=== PATIENT | male | born 1940 | race Caucasian/White ===

== ENCOUNTER → 2016-04-24 | Outpatient (REF) ==
[~2016-04-24] MED LIST: AMARYL4 MG PO; ARICEPT 5MG PO; ASPIRIN E.C. 8181 MG PO; ATIVAN 0.50.5 MG/TAB PO; CARB/LEVO; CARDI-OMEGA1000 MG PO; COLACE 100100 MG/CAP PO; GLUCOPHAGE500 MG/TAB PO; JANUVIA50 MG PO; MYLANTA GAS MA125 MG PO; NAMENDA XR 28MG PO; NEURONTIN300 MG/CAP PO; NORCO 325 MG-51 TAB PO; PRIL40 PO; PYRIDIUM200 M1 PO; VESICARE10 MG PO; ZOLOFT 100MG100 MG PO
== END ==
LOC: ZLAB.WCH 09:05
DX: Z01.89 Encounter for other specified special examinations (principal)

== ENCOUNTER → 2016-10-16 | Outpatient (CLI) | payer MEDICARE, OTHER | LOC: COL.RAD 13:53 | DX: G20 Parkinson's disease (principal); R13.12 Dysphagia, oropharyngeal phase | CPT/HCPCS: G8996-GN; G8997-GN; G8998-GN ==

== ENCOUNTER → 2016-11-08 | Outpatient (REF) | LOC: ZLAB.WCH 20:58 | DX: Z01.89 Encounter for other specified special examinations (principal) ==

== ENCOUNTER → 2016-11-11 | Outpatient (REF) | LOC: ZLAB.WCH 18:07 | DX: Z01.89 Encounter for other specified special examinations (principal) | CPT/HCPCS: G0103 ==

== ENCOUNTER → 2017-03-06 | Outpatient (REF) | LOC: ZLAB.WCH 18:28 | DX: Z01.89 Encounter for other specified special examinations (principal) ==

== ENCOUNTER → 2017-08-14 | Outpatient (REF) | LOC: ZLAB.WCH 14:18 | DX: Z01.89 Encounter for other specified special examinations (principal) ==

== ENCOUNTER → 2018-06-09 | Outpatient (REF) | LOC: ZLAB.WCH 17:40 | DX: Z01.89 Encounter for other specified special examinations (principal) ==

== ENCOUNTER 2019-04-24 15:27 | Inpatient (IN) | payer MEDICARE, OTHER ==
[2019-04-24] VITALS (303 sets, daily range): BP systolic 137–148; BP diastolic 57–73; PULSE 103–105; TEMP 100.4–101; O2SAT 89–100
[~2019-04-24] VITALS: Ht 170.2 cm; Wt 74.7 kg
[2019-04-24] MEDS ORDERED: IBU400 MG PO (16:58)
[2019-04-24] MEDS ORDERED: TYLENOL 325MG325 MG PO (16:58)
[2019-04-24] MEDS ORDERED: ROBITUSSIN DM 105 ML PO (16:59)
[2019-04-24] MEDS ORDERED: SINEMET CR1 UDTAB.S1 PO (17:02)
[2019-04-24] MEDS ORDERED: ARICEPT10 MG PO (17:05)
[2019-04-24 17:14] LABS: ARTERIAL BLD GAS O2 SATURATION 94.8 % (92-100); ARTERIAL BLOOD GAS BASE EXCESS -1.8 (-2-2); ARTERIAL BLOOD GAS HCO3 21.9 meq/L (22-26); ARTERIAL BLOOD GAS PCO2 34.3 mmHg (35-45); ARTERIAL BLOOD GAS PO2 71.6 mmHg (80-100); ARTERIAL BLOOD GAS pH 7.42 (7.35-7.45)
[2019-04-24 17:24] LABS: BASO % 0.3 % (0.0-2.0); EOS % 0.1 % (0-4.0); GRAN # 8.3 (1.4-6.5); GRAN % 90.8 % (42.2-75.2); HEMATOCRIT 38.3 % (42.0-52.0); HEMOGLOBIN 12.3 g/dl (13.5-18.0); LYMPH # 0.4 (1.2-3.4); LYMPH % 4.3 % (20.0-51.0); MEAN CELL VOLUME 90 fl (80.0-100.0); MEAN CORPUSCULAR HEMOGLOBIN 29 pg (27.0-31.0); MEAN CORPUSCULAR HGB CONC 32 g/dl (33.0-37.0); MEAN PLATELET VOLUME 9.8 fl (7.4-10.4); MONO # 0.3 (0.1-0.6); MONO % 3.1 % (1.7-9.3); PLATELET COUNT 182 K/mm3 (130-400); RED BLOOD COUNT 4.28 M/mm3 (4.20-5.60); REDCELL DISTRIBUTION WIDTH-CV 14.1 % (11.5-14.5)
--- NOTE | 2019-04-24 17:30 | NUR ---
ORAL CATHETER USED TO HELP INDUCE A COUGH WITH ENOUGH PRODUCTION TO SEND A SAMPLE TO LAB. PT AT THIS TIME ALSO SWITCHED FROM 5L OXYMASK TO A 5L HFNC. PT IS TOLERATING IT WELL. PT IS TACHYPNEIC BUT IS STILL FEBRILE AT THIS TIME. RN AT BEDSIDE AT THIS TIME GIVING ORAL TYLENOL.
[2019-04-24 17:42] LABS: INR 1.2 (0.8-3.0); PROTHROMBIN TIME 13.8 SECONDS (9.7-12.8)
[2019-04-24 17:50] LABS: MAGNESIUM 1.6 mg/dL (1.6-2.3)
[2019-04-24 18:25] LABS: ALBUMIN 4.4 gm/dL (3.5-5.0); BILIRUBIN,TOTAL 0.4 mg/dL (0.0-1.0); CALCIUM 9.1 mg/dL (8.4-10.2); CREATININE, serum 1.12 (0.66-1.25); POTASSIUM 4.5 mmol/L (3.4-5.0); TOTAL PROTEIN 7.2 gm/dL (6.4-8.2)
[2019-04-24 21:07] LABS: BAND 4 % (0-10); LYMPHOCYTE 6 % (20.0-51.0); NEUTROPHILS 86 % (42.0-75.2)
[2019-04-24] MEDS ORDERED: NORVASC 5MG5 MG/TAB PO (21:54)
[2019-04-24] MEDS ORDERED: SINEMET 25/101 UDTAB PO (21:58)
[2019-04-24] MEDS ORDERED: NEURONTIN100 MG/CAP PO (22:00)
[2019-04-24] MEDS ORDERED: GLUCOTROL 5M5 MG/TAB PO (22:01)
[2019-04-24] MEDS ORDERED: NAMENDA 10MG TA10 MG PO (22:02)
[2019-04-24] MEDS ORDERED: GLUCOPHAGE1000 MG PO (22:03)
[2019-04-24] MEDS ORDERED: ALEVE 220MG220 MG PO (22:05)
[2019-04-24] MEDS ORDERED: PRILOSEC 20MG20 MG PO (22:07)
[2019-04-24] MEDS ORDERED: REMERON30 MG PO (22:11)
[2019-04-24] MEDS ORDERED: DESYREL 50MG50 MG PO (22:12)
[2019-04-25] VITALS (752 sets, daily range): BP systolic 123–156; BP diastolic 60–92; PULSE 67–91; TEMP 98.1–99; O2SAT 64–100
[2019-04-25 04:04] LABS: ARTERIAL BLD GAS O2 SATURATION 93.3 % (92-100); ARTERIAL BLD GAS TCO2 CT 22.2; ARTERIAL BLOOD GAS BASE EXCESS -2.5 (-2-2); ARTERIAL BLOOD GAS HCO3 21.2 meq/L (22-26); ARTERIAL BLOOD GAS PCO2 33.1 mmHg (35-45); ARTERIAL BLOOD GAS PO2 66.9 mmHg (80-100); ARTERIAL BLOOD GAS pH 7.43 (7.35-7.45)
[2019-04-25 05:16] LABS: MEAN CELL VOLUME 89 fl (80.0-100.0); MEAN CORPUSCULAR HGB CONC 33 g/dl (33.0-37.0); MEAN PLATELET VOLUME 9.7 fl (7.4-10.4); PLATELET COUNT 148 K/mm3 (130-400); RED BLOOD COUNT 3.52 M/mm3 (4.20-5.60); REDCELL DISTRIBUTION WIDTH-CV 14.1 % (11.5-14.5)
[2019-04-25 05:26] LABS: HEMATOCRIT 31.4 % (42.0-52.0); HEMOGLOBIN 10.2 g/dl (13.5-18.0); MEAN CORPUSCULAR HEMOGLOBIN 29 pg (27.0-31.0)
[2019-04-25 05:27] LABS: INR 1.5 (0.8-3.0)
[2019-04-25 05:29] LABS: ALBUMIN 3.2 gm/dL (3.5-5.0); BILIRUBIN,TOTAL 0.4 mg/dL (0.0-1.0); CALCIUM 8.2 mg/dL (8.4-10.2); CREATININE, serum 0.91 (0.66-1.25); POTASSIUM 4.2 mmol/L (3.4-5.0); TOTAL PROTEIN 5.8 gm/dL (6.4-8.2)
[2019-04-25 05:55] LABS: BAND 20 % (0-10); LYMPHOCYTE 2 % (20.0-51.0); NEUTROPHILS 76 % (42.0-75.2); PLATELET ESTIMATE NORMAL (NORMAL)
--- NOTE | 2019-04-25 07:05 | NUR ---
Bedside report recieved from NEVA Leyva. Patient awake and participates. Denies needs or pain at this time. Peripheral IV sites x2 uncomplicated. Shaw with positive UO. Bed in low and locked position, call light within reach, rails up x3. Care assumed at this time.
--- NOTE | 2019-04-25 09:50 | NUR ---
Patient with increased delirium. Several attempts made to reorient and patient is resistant to these. He accurately reports his location as [place], [place] and the hospital but does not believe RN that he is sick and needs to remain here. He states he needs to leave and has things to do. Patient is found to have removed RFA INT IV. Site is dressed. Morales STAT lock is broken and patient is pulling at morales catheter. NC O2 has been removed by patient and O2 tubing pulled from flowmeter on wall. All these things are replaced and corrected. See MAR for intervention for agitation.
--- NOTE | 2019-04-25 10:20 | NUR ---
Patient resides at [facility] (since January 2019) and plans to return to [facility] upon recovery. Patient's (Danae Streeter) lives in [place], [place] and the patient receives support from her and his family as needed. Patient uses a wheelchair for mobility assistance, his primary care physician is Dr. Balta Sanders, and his pharmacy is [facility]. Patient does have advance directives for healthcare completed (DPOA 1 is his Danae Streeter [phone] or [phone] and DPOA 2 is Enrrique ySl [phone]). Patient is having increased confusion as of this morning and reports he knows he is in [facility] but is unsure of why and is not convinced he is ill. No further needs at this time and social secretary will follow up as needed.
[2019-04-26] VITALS (856 sets, daily range): BP systolic 147–166; BP diastolic 66–87; PULSE 62–87; TEMP 98–99.4; O2SAT 69–100
[2019-04-26 05:23] LABS: BASO % 0.2 % (0.0-2.0); GRAN # 4.8 (1.4-6.5); GRAN % 83.6 % (42.2-75.2); HEMATOCRIT 30.5 % (42.0-52.0); LYMPH # 0.5 (1.2-3.4); LYMPH % 9.1 % (20.0-51.0); MEAN CELL VOLUME 88 fl (80.0-100.0); MEAN CORPUSCULAR HEMOGLOBIN 29 pg (27.0-31.0); MEAN CORPUSCULAR HGB CONC 33 g/dl (33.0-37.0); MEAN PLATELET VOLUME 10.2 fl (7.4-10.4); MONO # 0.3 (0.1-0.6); MONO % 4.7 % (1.7-9.3); PLATELET COUNT 143 K/mm3 (130-400); RED BLOOD COUNT 3.48 M/mm3 (4.20-5.60); REDCELL DISTRIBUTION WIDTH-CV 13.9 % (11.5-14.5)
[2019-04-26 05:33] LABS: INR 1.2 (0.8-3.0); PROTHROMBIN TIME 14.1 SECONDS (9.7-12.8)
[2019-04-26 05:35] LABS: ALBUMIN 3.1 gm/dL (3.5-5.0); BILIRUBIN,TOTAL 0.4 mg/dL (0.0-1.0); CALCIUM 8.4 mg/dL (8.4-10.2); CREATININE, serum 0.82 (0.66-1.25); TOTAL PROTEIN 5.8 gm/dL (6.4-8.2)
--- NOTE | 2019-04-26 07:25 | NUR ---
Dr Freedman in to see pt at this time.
--- NOTE | 2019-04-26 07:27 | NUR ---
Report received from Jelly HOOKS and care resumed.
--- NOTE | 2019-04-26 16:40 | NUR ---
Chemical Process Project Engineer contacted patient's , Danae (ph#[phone]) to review discharge plan. Danae reports patient lives at [facility] and was at the [facility] right before being admitted to [facility]. Danae states she would like for patient to return to [facility] if he cannot return home. TIA presented Patient Preference form over the phone and Danae provided verbal consent to select [facility]. SW contacted [facility] and faxed a referral. SW to continue to follow.
--- NOTE | 2019-04-26 19:24 | NUR ---
Report given to Bonilla HOOKS and care transfered.
--- NOTE | 2019-04-26 19:40 | NUR ---
Assessment completed and charted at this time, please see documentation for details. Patient resting in bed, bed alarm on due to patient high risk status. No family present, will continue to monitor patient.
[2019-04-27] VITALS (717 sets, daily range): BP systolic 148–159; BP diastolic 61–85; PULSE 59–100; TEMP 97.5–100.2; O2SAT 78–100
[2019-04-27 06:40] LABS: HEMOGLOBIN 10.5 g/dl (13.5-18.0); MEAN CELL VOLUME 89 fl (80.0-100.0); MEAN CORPUSCULAR HEMOGLOBIN 29 pg (27.0-31.0); MEAN CORPUSCULAR HGB CONC 32 g/dl (33.0-37.0); MEAN PLATELET VOLUME 9.8 fl (7.4-10.4); PLATELET COUNT 165 K/mm3 (130-400); RED BLOOD COUNT 3.67 M/mm3 (4.20-5.60); REDCELL DISTRIBUTION WIDTH-CV 13.8 % (11.5-14.5)
[2019-04-27 06:42] LABS: HEMATOCRIT 32.8 % (42.0-52.0); INR 1.2 (0.8-3.0); PROTHROMBIN TIME 14.3 SECONDS (9.7-12.8)
[2019-04-27 06:45] LABS: ALBUMIN 3.2 gm/dL (3.5-5.0); BILIRUBIN,TOTAL 0.6 mg/dL (0.0-1.0); CALCIUM 8.8 mg/dL (8.4-10.2); CREATININE, serum 0.92 (0.66-1.25); TOTAL PROTEIN 5.9 gm/dL (6.4-8.2)
[2019-04-27 07:27] LABS: BAND 9 % (0-10); LYMPHOCYTE 18 % (20.0-51.0); NEUTROPHILS 67 % (42.0-75.2)
--- NOTE | 2019-04-27 13:54 | NUR ---
HEMODIALYSIS LAB TECHNICIAN student faxed updates to [facility]. dean of student services will continue.
--- NOTE | 2019-04-27 17:59 | NUR ---
Up to chair this afternoon. Napping. Denies pain. Waiting for supper tray.
--- NOTE | 2019-04-27 20:04 | NUR ---
Pt returned to bed with assist x2. Incontinent of urine. Pericare provided. Gown changed. Bedside shift report completed.
[2019-04-28] VITALS (370 sets, daily range): BP systolic 147–163; BP diastolic 64–79; PULSE 59–91; TEMP 98.4–98.7; O2SAT 62–100
--- NOTE | 2019-04-28 07:20 | NUR ---
Report received from Autumn HOOKS and care resumed.
--- NOTE | 2019-04-28 09:27 | NUR ---
Dr Ruiz in to see pt at this time.
[2019-04-28] MEDS ORDERED: LEVAQUIN 750MG750 M1 PO (09:35)
[2019-04-28] MEDS ORDERED: TAMIFLU6 MG/ML PO (09:36)
--- NOTE | 2019-04-28 10:35 | NUR ---
The patient is to discharge today, 04/28 back to [facility]. HAND GRINDER student contacted the patient's son, Enrrique to present IM form. Enrrique verbalized understanding. A copy was provided to the patient and original was placed in the chart. [facility] will transport the patient in-between [id number]. The team and the patient's family were in agreeance. Discharge orders faxed. There are no additional needs at this time.
--- NOTE | 2019-04-28 12:00 | NUR ---
penitentiary staff here to transport pt back to group home. Pt moved to wheelchair with max assist of 2. Update given to group home staff. Belongings sent with pt.
== END 2019-04-28 11:55 | DRG 871 ==
LOC: ICU 15:27
PROVIDERS: ADMIT Internal Medicine
DX: A41.89 Other specified sepsis (principal); J96.01 Acute respiratory failure with hypoxia; E87.2 Acidosis; R65.20 Severe sepsis without septic shock; G20 Parkinson's disease; F02.80 Dementia in other diseases classified elsewhere, unspecified severity, without behavioral disturbance, psychotic disturbance, mood disturbance, and anxiety; Z87.01 Personal history of pneumonia (recurrent); E11.9 Type 2 diabetes mellitus without complications; I10 Essential (primary) hypertension; Z86.14 Personal history of Methicillin resistant Staphylococcus aureus infection; Z66 Do not resuscitate; J10.1 Influenza due to other identified influenza virus with other respiratory manifestations
CPT/HCPCS: 99231-AI; 99233-AI; A4216; A4314; J0692; J1630; J1650; J1720; J1815; J1956; J3370; J7030; J7050; J7120

== ENCOUNTER 2019-04-29 20:12 | Inpatient (IN) | payer MEDICARE ==
[~2019-04-29] VITALS: Ht 177.8 cm; Wt 73.3 kg
[~2019-04-29 20:12] MED LIST changes: +ALEVE 220MG220 MG PO; +ARICEPT10 MG PO; +DESYREL 50MG50 MG PO; +GLUCOPHAGE1000 MG PO; +GLUCOTROL 5M5 MG/TAB PO; +IBU400 MG PO; +LEVAQUIN 750MG750 M1 PO; +NAMENDA 10MG TA10 MG PO; +NEURONTIN100 MG/CAP PO; +NORVASC 5MG5 MG/TAB PO; +PRILOSEC 20MG20 MG PO; +REMERON30 MG PO; +ROBITUSSIN DM 105 ML PO; +SINEMET 25/101 UDTAB PO; +SINEMET CR1 UDTAB.S1 PO; +TAMIFLU6 MG/ML PO; +TYLENOL 325MG325 MG PO
[2019-04-29 20:36] LABS: HEMOGLOBIN 11.6 g/dl (13.5-18.0); MEAN CELL VOLUME 88 fl (80.0-100.0); MEAN CORPUSCULAR HEMOGLOBIN 28 pg (27.0-31.0); MEAN CORPUSCULAR HGB CONC 32 g/dl (33.0-37.0); MEAN PLATELET VOLUME 9.6 fl (7.4-10.4); PLATELET COUNT 213 K/mm3 (130-400); RED BLOOD COUNT 4.08 M/mm3 (4.20-5.60); REDCELL DISTRIBUTION WIDTH-CV 13.6 % (11.5-14.5)
[2019-04-29 20:48] LABS: ALANINE AMINOTRANSFERASE 6 U/L (21-72); ALBUMIN 3.8 gm/dL (3.5-5.0); ALKALINE PHOSPHATASE 61 U/L (50-136); ANION GAP 11 mmol/L (7-16); AST,SGOT 21 U/L (15-37); BILIRUBIN,TOTAL 0.9 mg/dL (0.0-1.0); BLOOD UREA NITROGEN 22 mg/dL (9-20); CALCIUM 9.2 mg/dL (8.4-10.2); CARBON DIOXIDE 26 mmol/L (22-30); CHLORIDE 103 mmol/L (98-107); CREATININE, serum 0.97 (0.66-1.25); GLUCOSE 204 mg/dL (74-106); POTASSIUM 3.5 mmol/L (3.4-5.0); SODIUM 140 mmol/L (137-145); TOTAL PROTEIN 6.8 gm/dL (6.4-8.2)
[2019-04-29 21:00] LABS: BAND 4 % (0-10); LYMPHOCYTE 4 % (20.0-51.0); MYELOCYTE 4 % (0-0); NEUTROPHILS 84 % (42.0-75.2); PLATELET ESTIMATE NORMAL (NORMAL)
[2019-04-29 21:05] LABS: TROPONIN-I < 0.012 ng/mL (0.000-0.035)
[2019-04-29 23:22] LABS: COLLECTION METHOD CATHETER
[2019-04-29 23:27] LABS: MUCOUS Present /lpf; PH 5 (5-8); SQUAMOUS EPITHELIAL 0-2 /hpf; URINE APPEARANCE Clear; URINE BACTERIA None Seen /hpf; URINE BILIRUBIN Negative (NEGATIVE); URINE BLOOD Negative (NEGATIVE); URINE COLOR Yellow; URINE GLUCOSE 1+ (NEGATIVE); URINE KETONE 1+ (NEGATIVE); URINE LEUKOCYTE ESTERASE Negative (NEGATIVE); URINE NITRATE Negative (NEGATIVE); URINE PROTEIN(semi-quant) 1+ (NEGATIVE); URINE RBC 0-2 /hpf; URINE UROBILINOGEN Negative (NEGATIVE)
[2019-04-30] VITALS (7 sets, daily range): BP systolic 134–151; BP diastolic 49–59; PULSE 70–94; TEMP 97.9–98.9
--- NOTE | 2019-04-30 00:15 | NUR ---
Patient arrived on floor at 2355 from ED accompanied by and son. Five page completed with assistance of family as patient has history of Parkinson's and doesn't speak much. Patient has diminished lung sounds with expiratory wheezes bilaterally. Patient is on telemetry. Antibiotics given as ordered. No temperature at this time, however family states patient has had fever. Family requested the patient be given a drink. This nurse called Robina Egan APRN for diet order, instructed to give patient thinned liquid and call if patient isn't able to tolerate. Patient's assisted giving patient a drink of water. Patient started coughing almost immediately. This nurse reported information back to SENIOR ACCOUNT MANAGER, patient is now NPO. Patient seems to be resting comfortably at this time.
[2019-04-30 00:58] LABS: INR 1.2 (0.8-3.0); PROTHROMBIN TIME 14.2 SECONDS (9.7-12.8)
[2019-04-30 01:45] LABS: ARTERIAL BLOOD GAS BASE EXCESS 2.9 (-2-2); ARTERIAL BLOOD GAS PCO2 34.7 mmHg (35-45); ARTERIAL BLOOD GAS PO2 77.3 mmHg (80-100); ARTERIAL BLOOD GAS pH 7.49 (7.35-7.45)
--- NOTE | 2019-04-30 06:42 | NUR ---
Patient became a little more confused around 530. Patient was removing nasal cannula and removing tele leads. Patient SpO2 spot checked on room air at 90-91%. Patient doing better with nasal cannula off. No complaints of pain at this time.
--- NOTE | 2019-04-30 10:00 | NUR ---
Assessment completed, patient is very lethargic this moring, vital signs stable/ afebrile, denies pain, Lungs CTA/ diminihsed, heart RRR, daughter spoke to on the phone and she is going to be up here later to speak with hospitalist, his bed alarm is set, he is NPO for ST eval
--- NOTE | 2019-04-30 16:18 | NUR ---
TIA met with the patient, the patient's , Danae and the patient's daughter, Gia to complete initial intake. The patient's responded to intake questions. The patient lives at [facility]. The patient receives assistance with ADLs. The patient's PCP is Dr. Woodson and patient receives medication from [facility] in [place]. The patient has advanced directives in the EMR. protective services social worker will continue to follow to ensure a safe discharge. TIA faxed updates to [facility]. Danae and Gia notified TIA of some concerns. TIA to inform ethanol quality leader, Yarelis Tejada. protective services social worker will continue to follow. Danae Streeter Gia [place]
--- NOTE | 2019-04-30 16:45 | NUR ---
TIA faxed updates to [facility]. The patient's family reports that if the patient is needing skilled at discharge they may be interested in another facility for skilled then returning to [facility] to continue in LTC there. Will continue to monitor.
--- NOTE | 2019-04-30 22:15 | NUR ---
Shift assessment complete. Patient in bed, awake. Oriented to name only. Incontinent of urine. Radha-care provided, bed pad changed. Coccyx noted to be reddened. Previous bed sore, healing. Able to deny pain. Repositioned to right side with pillow support. Will continue to monitor.
--- NOTE | 2019-05-01 04:38 | NUR ---
Patient in bed, sleeping. Appears comfortable. Will continue to monitor.
[2019-05-01 05:18] VITALS: BP 165/69; PULSE 61; TEMP 98
[2019-05-01 07:45] LABS: HEMOGLOBIN 10.5 g/dl (13.5-18.0); MEAN CELL VOLUME 89 fl (80.0-100.0); MEAN CORPUSCULAR HEMOGLOBIN 29 pg (27.0-31.0); MEAN CORPUSCULAR HGB CONC 32 g/dl (33.0-37.0); MEAN PLATELET VOLUME 10.1 fl (7.4-10.4); PLATELET COUNT 184 K/mm3 (130-400); RED BLOOD COUNT 3.64 M/mm3 (4.20-5.60); REDCELL DISTRIBUTION WIDTH-CV 13.6 % (11.5-14.5)
[2019-05-01 07:47] LABS: ALBUMIN 3.2 gm/dL (3.5-5.0); BILIRUBIN,TOTAL 0.7 mg/dL (0.0-1.0); CALCIUM 8.5 mg/dL (8.4-10.2); CREATININE, serum 0.83 (0.66-1.25); POTASSIUM 3.2 mmol/L (3.4-5.0); TOTAL PROTEIN 6.1 gm/dL (6.4-8.2)
[2019-05-01 07:50] VITALS: BP 169/90; PULSE 84; TEMP 98.6
--- NOTE | 2019-05-01 07:52 | NUR ---
AM ASSESSMENT COMPLETED AT THIS TIME. LAYING IN BED. AWAKE ALERT BUT CONFUSED. MILD AGITATION. PULING TELEMETRY OFF. PULLED OUT IV SITE TO LEFT LOWER FOREARM. DENIES C/O PAIN. LARGE EPISODE OF LOOSE STOOL X 1. PULLED OFF EXTERNAL CATHETER. CONTINUES TO BE NPO EXCEPT CRUSHED MEDICATIONS WITH SMALL BITES OR APPLESAUCE OR PUDDING. HAD EPISODE OF COUGHING WHILE TAKING MEDICATIONS. HOSPITALIST NOTIFIED OF COUGHING. AND DAUGHTER PRESENT DURING HOSPITALIST ROUNDS. CT HEAD OBTAINED TO R/O ACUTE FINDINGS FOR INCREASED CONFUSION AND AGITATION. POTASSIUM REPLACED ORDERED FOR LOW SERUM POTASSIUM LEVEL.
[2019-05-01 07:54] LABS: HEMATOCRIT 32.5 % (42.0-52.0)
[2019-05-01 09:25] LABS: BAND 3 % (0-10); EOSINOPHIL 4 % (0-4); LYMPHOCYTE 17 % (20.0-51.0); METAMYELOCYTE 6 % (0-0); NEUTROPHILS 63 % (42.0-75.2)
[2019-05-01 09:26] LABS: PLATELET ESTIMATE NORMAL (NORMAL)
--- NOTE | 2019-05-01 10:27 | NUR ---
Patient was resting.
[2019-05-01 13:12] VITALS: BP 155/65; PULSE 75; TEMP 98.6
[2019-05-01 17:11] VITALS: BP 151/56; PULSE 73; TEMP 98.9
--- NOTE | 2019-05-01 20:15 | NUR ---
Spoke with pt's . She was concerned that pt is aspirating when taking medication with applesauce/pudding. Discussed with that it does appear he is aspirating d/t "wet" breath sounds, and coughing after meds are given. stated she knows the risks, and would like us to still administer his Parkinson medication, sinemet. MACIEJ Way aware.
[2019-05-01 21:16] VITALS: BP 179/58; PULSE 76; TEMP 97.6
--- NOTE | 2019-05-01 22:00 | NUR ---
Shift assessment complete. Patient in bed, awake. Able to say "no" when asked if he is in pain. Oriented to person only. Only sinemet given per 's request. Crushed, given in pudding. Tolerated well, but as I left the room, he had a spell of coughing. RT on board to suction if needed. Does not appear to need to be suctioned at this time. Will continue to monitor.
[2019-05-02 00:01] VITALS: BP 131/64; PULSE 80; TEMP 97.7
--- NOTE | 2019-05-02 01:30 | NUR ---
Patient in bed, awake. Incontinent of lg BM/lg urine. Radha-care provided. Brief loosely attached d/t reddened buttocks/scrotum. Barrier cream applied. Partial linen change. Repositioned to left side with pillow support. Mouthcare done, pt tolerated well. IV in LUE flushed, blood return noted. Infusing abx. Bed alarm on. Call light within reach.
[2019-05-02 04:49] VITALS: BP 171/62; PULSE 73; TEMP 98.4
--- NOTE | 2019-05-02 05:07 | NUR ---
Patient in bed, sleeping. Arouses to name. Denies pain. IV in LUE flushed, blood return noted. Repositioned supine, with pillow support. Denies further needs at this time. Will continue to monitor.
[2019-05-02 08:42] LABS: HEMOGLOBIN 10.6 g/dl (13.5-18.0); MEAN CELL VOLUME 89 fl (80.0-100.0); MEAN CORPUSCULAR HEMOGLOBIN 29 pg (27.0-31.0); MEAN CORPUSCULAR HGB CONC 32 g/dl (33.0-37.0); MEAN PLATELET VOLUME 10.5 fl (7.4-10.4); PLATELET COUNT 197 K/mm3 (130-400); RED BLOOD COUNT 3.72 M/mm3 (4.20-5.60); REDCELL DISTRIBUTION WIDTH-CV 13.4 % (11.5-14.5)
[2019-05-02 08:43] VITALS: BP 161/59; PULSE 75; TEMP 97.4
[2019-05-02 08:49] LABS: ALBUMIN 3.3 gm/dL (3.5-5.0); BILIRUBIN,TOTAL 0.5 mg/dL (0.0-1.0); CALCIUM 8.5 mg/dL (8.4-10.2); CREATININE, serum 0.71 (0.66-1.25); POTASSIUM 3.2 mmol/L (3.4-5.0); TOTAL PROTEIN 6.1 gm/dL (6.4-8.2)
[2019-05-02 08:53] LABS: HEMATOCRIT 33.1 % (42.0-52.0)
--- NOTE | 2019-05-02 09:24 | NUR ---
RADIOLOGY ABLE TO DO LUMABR PUNCTURE ORDERED BY DR VENTURA. ATTEMPTED TO CALL TO OBTAIN CONSENT UNABLE TO REACH. PROCEDURE ON HOLD UNTIL ABLE TO GET CONSENT.
--- NOTE | 2019-05-02 09:43 | NUR ---
Vancomycin Initial Dosing Pharmacy Note Ordering provider: Luciano Schumacher MD Indication/duration: Poss. asp. PNA, septic Relevant comorbidities: DM, recent Infl.A+, AMS LABS: eCrCl ~ 80 mL/min, WBC 8.2 Recommendation: Loading dose: 1g given 05/01/19 @ 15:00 and again 05/02/19 @ 01:30. Maintenance dose: 1 gram every 12 hours Trough goal: 15-20 ug/mL with first trough level prior to the 5th dose on 05/03/19 @ 13:00. Will continue to follow.
[2019-05-02 09:49] LABS: EOSINOPHIL 4 % (0-4); LYMPHOCYTE 9 % (20.0-51.0); METAMYELOCYTE 7 % (0-0); NEUTROPHILS 74 % (42.0-75.2); PLATELET ESTIMATE NORMAL (NORMAL)
[2019-05-02 12:41] VITALS: BP 145/82; PULSE 72; TEMP 98.2
[2019-05-02 15:49] VITALS: BP 156/54; PULSE 68; TEMP 98.8
--- NOTE | 2019-05-02 20:30 | NUR ---
Initial shift assessment done- does open eyes and says a few words- not oriented, denies being in pain- appears to be comfortable, No SOB ,, Incontinent of urine- cleaned up- repositioned.
[2019-05-02 21:41] VITALS: BP 158/56; PULSE 84; TEMP 98.2
[2019-05-03 00:51] VITALS: BP 155/60; PULSE 66; TEMP 97.7
[2019-05-03 05:20] VITALS: BP 152/65; PULSE 73; TEMP 99.3
--- NOTE | 2019-05-03 06:15 | NUR ---
Quiet night- VSS, slept very well during the night. Repositioned every couple hours- continues with loose sounding cough
[2019-05-03 06:32] LABS: HEMOGLOBIN 10.6 g/dl (13.5-18.0); MEAN CELL VOLUME 90 fl (80.0-100.0); MEAN CORPUSCULAR HEMOGLOBIN 28 pg (27.0-31.0); MEAN CORPUSCULAR HGB CONC 32 g/dl (33.0-37.0); MEAN PLATELET VOLUME 9.8 fl (7.4-10.4); PLATELET COUNT 201 K/mm3 (130-400); RED BLOOD COUNT 3.76 M/mm3 (4.20-5.60); REDCELL DISTRIBUTION WIDTH-CV 13.2 % (11.5-14.5)
[2019-05-03 06:39] LABS: HEMATOCRIT 33.7 % (42.0-52.0)
[2019-05-03 06:49] LABS: ALBUMIN 3.3 gm/dL (3.5-5.0); BILIRUBIN,TOTAL 0.5 mg/dL (0.0-1.0); CALCIUM 8.5 mg/dL (8.4-10.2); CREATININE, serum 0.74 (0.66-1.25); POTASSIUM 3.4 mmol/L (3.4-5.0); TOTAL PROTEIN 6.2 gm/dL (6.4-8.2)
[2019-05-03 07:54] LABS: BAND 2 % (0-10); EOSINOPHIL 2 % (0-4); LYMPHOCYTE 10 % (20.0-51.0); METAMYELOCYTE 12 % (0-0); NEUTROPHILS 71 % (42.0-75.2)
[2019-05-03 07:55] LABS: PLATELET ESTIMATE NORMAL (NORMAL)
[2019-05-03 08:42] VITALS: BP 170/53; PULSE 78; TEMP 99.4
--- NOTE | 2019-05-03 10:23 | NUR ---
Pt napping upon entry, easily awakened, no C/O pain at this time, medications given with applesauce, no choking / coughing noted. Shift assessments complete, left Pt call light in reach, bed in lowest position.
--- NOTE | 2019-05-03 13:19 | NUR ---
Pt seen by treatment team with Dr Rangel and following that, I was asked to see pt regarding palliative care. Family has elected to return to [facility] with [facility]. Lee Ann with social work and I met with family and then i contacted [facility] with referral. They are looking at being able to admit tomorrow.
--- NOTE | 2019-05-03 15:06 | NUR ---
Wire Bound Box Machine Helper was notified by Hospitalist that patient to transition to comfort care. TIA and Jossy Palliative RN met with patient's Danae and daughter June. Family expressed they want patient to return to [facility]. Family reports they spoke to OSMEL Frankel at [facility] who is expecting patient back and advised they contract with [facility]. Family advised they would like patient to transport via EMS. After meeting with the family, TIA contacted OSMEL Frankel who advised they could accept referral tomorrow morning. TIA faxed updates to [facility]. Jossy Palliative RN contacted [facility] who will accept referral. TIA contacted [facility] and established transportation for 1000 tomorrow. TIA prepped EMS transport forms for tomorrow. TIA provided update on transport time to family, Jossy Frankel, Hospitalist and patient's RN Froylan. TIA to continue to follow.
--- NOTE | 2019-05-03 19:15 | NUR ---
Received report from Froylan. Patient is awake, lying in the bed. Relatives at the bedside. With INT on left ACC. Will continue to monitor.
--- NOTE | 2019-05-03 19:38 | NUR ---
Pt resting in the bed, taking medications with applesauce without cough, choking, no C/O pain throughout the day, turned Q2H for comfort, VS ahve remained stable, had 99.8 temp this afternoon and tylenol given with good results.
--- NOTE | 2019-05-03 21:00 | NUR ---
Patient was repositioned and diaper have been changed by FOREST FIRE PREVENTION SPECIALIST.
[2019-05-04] MEDS ORDERED: ROXANOL 20MG20 MG/ML SL (09:08)
[2019-05-04] MEDS ORDERED: TRANSDERM-0.5 MG/21 TD (09:08)
[2019-05-04] MEDS ORDERED: ATIVAN 1MG T1 MG/TAB PO (09:08)
[2019-05-04] MEDS ORDERED: ZOFRAN ODT4 MG PO (09:09)
--- NOTE | 2019-05-04 09:44 | NUR ---
Film Laboratory Technician attended clinical rounds with the team and patient to discharge today to [facility]osp[facility] today. SW obtained signatures from Hospitalist and patient's , Danae on EMS transport forms. TIA provided update to Jossy Palliative RN. TIA contacted both SOMEL Frankel at [facility] and [facility] then faxed discharge orders with prescriptions. Patient to discharge at 1000 today. No additional needs at this time.
--- NOTE | 2019-05-04 10:50 | NUR ---
Pt transferred to [facility] facility via EMS, report called to NEVA Frankel at the facility, morning medications given before transfer and lorazapam and roxinol given for comfort.
== END 2019-05-04 10:10 | disposition hospice, home (50) | DRG 871 ==
LOC: COL.ER 20:12 → MEDICAL 22:14
PROVIDERS: Emergency Medicine; Nurse Practitioner Family; ADMIT Student in an Organized Health Care Education/Training Program
DX: A41.9 Sepsis, unspecified organism (principal); J96.01 Acute respiratory failure with hypoxia; E87.2 Acidosis; J98.11 Atelectasis; R65.20 Severe sepsis without septic shock; I10 Essential (primary) hypertension; G20 Parkinson's disease; Z66 Do not resuscitate; Z51.5 Encounter for palliative care; F02.80 Dementia in other diseases classified elsewhere, unspecified severity, without behavioral disturbance, psychotic disturbance, mood disturbance, and anxiety; E11.40 Type 2 diabetes mellitus with diabetic neuropathy, unspecified; E53.8 Deficiency of other specified B group vitamins; Z86.14 Personal history of Methicillin resistant Staphylococcus aureus infection
CPT/HCPCS: 99222-AI; 99232-AI; 99233-AI; 99239; C9113; J0456; J0696; J1815; J1885; J1940; J1956; J2543; J3370; J3480; J7030; J7050